=== PATIENT | female | born 1985 | race Caucasian/White ===

== ENCOUNTER 2018-12-31 17:57 | Emergency (ER) | payer SELFPAY ==
[~2018-12-31] VITALS: Ht 172.7 cm; Wt 72.6 kg
[2018-12-31 18:10] VITALS: BP 122/86
[2018-12-31] MEDS ORDERED: IBUPROFEN 200 MG TABLET. PO ONE (18:30)
[2018-12-31] MEDS ORDERED: IBUPROFEN 400 MG TABLET. PO ONE (18:31)
--- NOTE | 2018-12-31 19:00 | PHYS DOC ---
Past Medical History Past Medical History: Migraines Past Surgical History: No Surgical History Alcohol Use: Occasionally Drug Use: None Adult General Chief Complaint Chief Complaint: FOOT INJURY PAIN HPI HPI 33-year-old female presents to ER via POV for complaints of mechanical fall which occurred last night. She states she slipped causing her to fall down 2 steps and since has had right ankle and foot pain. Patient has swelling to her right ankle and she states it has been difficult to walk today with increased pain with weightbearing. She denies any [id number] medications for pain. Patient states she did strike her right cheek on the fall but denies any head, neck, or back pain. Patient's only complaint is of the right ankle and foot. Patient reports she does not have menstrual cycles due to Depo shot. Review of Systems Review of Systems Constitutional: Denies fatigue/LOC Eyes: Denies change in visual acuity or eye pain [] HENT: Denies head pain Respiratory: Denies cough or shortness of breath [] Cardiovascular: No additional information not addressed in HPI [] GI: Denies abdominal pain, nausea, vomiting : Denies urinary sxs Musculoskeletal: Denies back/neck pain. Reports rt foot/ankle pain with swelling to rt outer ankle Integument: Denies abrasions/bruising Neurologic: Denies headache, focal weakness or sensory changes [] All other systems were reviewed and found to be within normal limits, except as documented in this note. Current Medications Current Medications Current Medications Medications (Trade) Dose Ordered Sig/Francis Start Time Stop Time Status Last Admin Dose Admin Ibuprofen (Motrin) 400 mg STK-MED ONCE 12/31/18 18:31 12/31/18 18:32 DC Allergies Allergies Allergies Coded Allergies Type Severity Reaction Last Updated Verified acetaminophen Allergy Severe 12/31/18 Yes oxycodone Allergy Severe 12/31/18 Yes Physical Exam Physical Exam Constitutional: Well developed, well nourished, no acute distress, non-toxic appearance. [] HENT: Normocephalic, atraumatic, oropharynx moist, nose normal. [] Eyes: Pupils equal, conjunctiva normal, no discharge. [] Neck: Normal range of motion, no tenderness mid line cspine, supple, no stridor. [] Cardiovascular:Heart rate regular Lungs & Thorax: Resp. equal/nonlabored Skin: Warm, dry, no erythema, no rash. [] Back: No tenderness mid line spine, no CVA tenderness. [] Extremities: Pelvis stable/nontender. No cyanosis, no clubbing. 2+ bilat. posterior tibial/dorsalis pedis. Tender on palp. lateral malleolus with swelling- no ecchymosis. Decreased ROM. Tender across dorsal surface mid rt foot- no deformities. Neurologic: Alert and oriented X 3, normal motor function, normal sensory function, no focal deficits noted. [] Psychologic: Affect normal, judgement normal, mood normal. [] Current Patient Data Vital Signs Vital Signs Date Time Temp Pulse Resp B/P (MAP) Pulse Ox O2 Delivery O2 Flow Rate FiO2 12/31/18 18:10 98.0 104 17 122/86 (98) 99 Room Air 98.0 EKG EKG [] Radiology/Procedures Radiology/Procedures PROCEDURE: CT LOWER EXTREMITY WO RIGHT EXAM: CT right foot without contrast. HISTORY: Right foot pain after a fall. TECHNIQUE: CT of the right foot was performed without intravenous contrast. COMPARISON: Today's radiographs. FINDINGS: No fractures are identified throughout the foot or ankle. Joint spaces and alignment are maintained. Midfoot alignment and the Lisfranc joint are unremarkable. There is soft tissue swelling overlying the lateral malleolus. The medial and lateral tendons appear intact and located. The Achilles tendon, extensor tendons and plantar fascia are unremarkable. IMPRESSION: 1. Soft tissue swelling at the lateral malleolus. No fracture or malalignment throughout. *One or more of the following individualized dose reduction techniques were utilized for this examination: 1. Automated exposure control. 2. Adjustment of the mA and/or kV according to patient size. 3. Use of iterative reconstruction technique. Electronically signed by: Cricket Hammond MD (12/31/2018 8:04 PM) [facility] DICTATED and SIGNED BY: LORI HAMMOND MD DATE: 12/31/182003 PROCEDURE: ANKLE RIGHT 3V EXAM: 1. ANKLE RIGHT 3V, 2. FOOT RIGHT 3V. HISTORY: Right foot/ankle pain after injury. COMPARISON: None. FINDINGS: No fractures are appreciated at the ankle. Joint spaces and alignment of the mortise are maintained. There is soft tissue swelling laterally. No fractures are identified in the right foot. Joint spaces and alignment are maintained. IMPRESSION: 1. Lateral soft tissue swelling at the ankle. No fracture. Electronically signed by: Cricket Hammond MD (12/31/2018 7:12 PM) [facility] DICTATED and SIGNED BY: LORI HAMMOND MD DATE: 12/31/181911 Course & Med Decision Making Course & Med Decision Making Pertinent Imaging studies reviewed. (See chart for details) [] Dragon Disclaimer Dragon Disclaimer This electronic medical record was generated, in whole or in part, using a voice recognition dictation system. Departure Departure Impression: Primary Impression: Right foot sprain Additional Impression: Right ankle pain Disposition: HOME, SELF-CARE Condition: STABLE Referrals: DARYA OROSCO II, MD Patient Instructions: Ankle Sprain, Crutch Use, Foot Sprain, RICE - Routine Care for Injuries Additional Instructions: Tylenol and/or ibuprofen as needed for pain as directed on container. As discussed if symptoms persist or with concerns follow-up with your primary care physician and/or an orthopedic doctor for reevaluation and further care. Problem Qualifiers ELIER LUCERO APRN Dec 31, 2018 19:00
--- NOTE | 2018-12-31 19:15 | RAD ---
EXAM: 1. ANKLE RIGHT 3V, 2. FOOT RIGHT 3V. HISTORY: Right foot/ankle pain after injury. COMPARISON: None. FINDINGS: No fractures are appreciated at the ankle. Joint spaces and alignment of the mortise are maintained. There is soft tissue swelling laterally. No fractures are identified in the right foot. Joint spaces and alignment are maintained. IMPRESSION: 1. Lateral soft tissue swelling at the ankle. No fracture. Electronically signed by: Cricket Hammond MD (12/31/2018 7:12 PM) [facility]
--- NOTE | 2018-12-31 19:15 | RAD ---
EXAM: 1. ANKLE RIGHT 3V, 2. FOOT RIGHT 3V. HISTORY: Right foot/ankle pain after injury. COMPARISON: None. FINDINGS: No fractures are appreciated at the ankle. Joint spaces and alignment of the mortise are maintained. There is soft tissue swelling laterally. No fractures are identified in the right foot. Joint spaces and alignment are maintained. IMPRESSION: 1. Lateral soft tissue swelling at the ankle. No fracture. Electronically signed by: Cricket Hammond MD (12/31/2018 7:12 PM) [facility]
--- NOTE | 2018-12-31 20:07 | RAD ---
EXAM: CT right foot without contrast. HISTORY: Right foot pain after a fall. TECHNIQUE: CT of the right foot was performed without intravenous contrast. COMPARISON: Today's radiographs. FINDINGS: No fractures are identified throughout the foot or ankle. Joint spaces and alignment are maintained. Midfoot alignment and the Lisfranc joint are unremarkable. There is soft tissue swelling overlying the lateral malleolus. The medial and lateral tendons appear intact and located. The Achilles tendon, extensor tendons and plantar fascia are unremarkable. IMPRESSION: 1. Soft tissue swelling at the lateral malleolus. No fracture or malalignment throughout. *One or more of the following individualized dose reduction techniques were utilized for this examination: 1. Automated exposure control. 2. Adjustment of the mA and/or kV according to patient size. 3. Use of iterative reconstruction technique. Electronically signed by: Cricket Hammond MD (12/31/2018 8:04 PM) [facility]
== END 2018-12-31 21:05 | disposition home or self-care (01) ==
LOC: ER 17:57
DX: S93.691A Other sprain of right foot, initial encounter (principal); M25.571 Pain in right ankle and joints of right foot; G43.909 Migraine, unspecified, not intractable, without status migrainosus; Z88.6 Allergy status to analgesic agent; Z88.5 Allergy status to narcotic agent; W10.9XXA Fall (on) (from) unspecified stairs and steps, initial encounter; Y93.89 Activity, other specified; Y92.89 Other specified places as the place of occurrence of the external cause; Y99.8 Other external cause status
CPT/HCPCS: 29515; 73610; 73630; 73700; 99284